=== PATIENT | female | born 1950 | race Hispanic/Latino ===

== ENCOUNTER 2018-01-02 09:47 | Day surgery (SDC) | payer OTHER ==
[2018-01-01 12:34] VITALS: BMI 29.7
[2018-01-02] MEDS ORDERED: DiphenhydrAMINE 50 mg/ml Inj ONE (11:09)
[2018-01-02] MEDS ORDERED: Lidocaine 2% MPF (5 ml) Inj ONE (11:12)
[2018-01-02] MEDS ORDERED: MethylPREDNISolone 40 mg Vial IVP ONE (11:30)
[2018-01-02] MEDS ORDERED: DiphenhydrAMINE 50 mg/ml Inj IVP ONE (11:30)
[2018-01-02] MEDS ORDERED: Midazolam 2 MG/2 ML VIAL ONE (11:39)
[2018-01-02] MEDS ORDERED: Iodixanol 320 MG/ML 200 ML BOTTLE IV ONE (11:43)
[2018-01-02 12:31] LABS: ARTERIAL BLOOD GAS HCO3 24.6 mmol/L (21-28); ARTERIAL BLOOD GAS HEMOGLOBIN 13.3 g/dL (11.7-17.4); ARTERIAL BLOOD GAS O2 SAT 95.4 % (95-98); ARTERIAL BLOOD GAS PCO2 47 mm/Hg (35-45); ARTERIAL BLOOD GAS PH 7.35 (7.35-7.45); ARTERIAL BLOOD GAS PO2 67 mm/Hg (80-100); ARTERIAL BLOOD GAS TCO2 27.3 mmol/L (22-28)
[2018-01-02 12:36] LABS: VENOUS BLOOD GAS BASE EXCESS -1.1 mmol/L (0.0-2.0); VENOUS BLOOD GAS PCO2 48 mmHg (40-60); VENOUS BLOOD GAS PO2 39 mm/Hg (30-55); VENOUS BLOOD PH 7.33 (7.32-7.43)
--- NOTE | 2018-01-03 07:16 | CARDCATH ---
PROCEDURE DATE: 01/02/2018 INDICATIONS: Sri Sinclair is a 67-year-old female known history of aortic stenosis, recent worsening of symptoms with dyspnea on exertion with minimal activity, therefore, brought for preoperative aortic valve replacement evaluation for complete heart catheterization. PROCEDURE PERFORMED: Complete heart catheterization with selective left and right coronary angiogram, right heart catheterization with hemodynamic and saturation, simultaneous LV and AO gradients for evaluation of aortic stenosis. CORONARY ANATOMY: Left main is a large size vessel, bifurcates into left anterior descending and left circumflex coronary artery. Left anterior descending is a large size vessel, gives off one medium diagonal branch and two small diagonals, three small septal perforators with no obstructive disease. Left circumflex is a large-sized vessel, gives off two small obtuse marginal and one medium size obtuse marginal before continuing as the PLV branch with no obstructive disease. The right coronary artery large-sized vessel gives off the acute marginal and the right PDA branches with no obstructive disease. Impression, normal coronary arteries, right heart cath hemodynamics RA mean was 13, pulmonary capillary wedge pressure was 15, PA pressure is 30/20 with a mean of 15. Cardiac output using the thermodilution method was 5.5 L with a cardiac index of 2.6. [id number] transaortic gradients were 30 mmHg. Using the Hakki equation, aortic valve area was calculated to be 0.8 with a transaortic [id number] gradients of 30 mmHg consistent with severe aortic stenosis. IMPRESSION: Normal coronary arteries, severe aortic stenosis with [id number] transaortic gradients of 30 mmHg. RECOMMENDATIONS: The patient is to be evaluated for mini aortic valve replacement by Dr. Jose Mckenzie at [facility]. Leonid Charlton MD
== END 2018-01-02 16:11 | disposition home or self-care (01) ==
LOC: C.CATHLAB 09:47
PROVIDERS: ATTEND Internal Medicine Interventional Cardiology
DX: I35.0 Nonrheumatic aortic (valve) stenosis (principal); I25.10 Atherosclerotic heart disease of native coronary artery without angina pectoris
CPT/HCPCS: 82803; 93453; 99152; 99153; C1714; C1760; C1766; C1769; C1887; C1893; J1200; J1644; J2250; J2930; J3010; Q9966